=== PATIENT | female | born 1995 | race Native Hawaiian/Other Pacific Islander ===

== ENCOUNTER 2020-12-09 08:09 | Outpatient (CLI) | payer BC, OTHER | END 2020-12-09 20:03 | disposition home or self-care (01) | LOC: INF 08:09 | PROVIDERS: ATTEND Internal Medicine | DX: Z23 Encounter for immunization (principal) | CPT/HCPCS: 96372 ==

== ENCOUNTER 2020-12-31 08:03 | Outpatient (CLI) | payer BC, OTHER | END 2020-12-31 19:19 | disposition home or self-care (01) | LOC: INF 08:03 | PROVIDERS: ATTEND Internal Medicine | DX: Z23 Encounter for immunization (principal) | CPT/HCPCS: 96372 ==